=== PATIENT | male | born 1985 | race Caucasian/White ===

== ENCOUNTER 2025-01-26 18:21 | Inpatient (IN) | payer OTHER ==
[~2025-01-26 18:21] MED LIST: Iopamidol-370 76% 500 ML MDV (1 ML CHARGE) ONE
[2025-01-26] MEDS ORDERED: Metoclopramide HCl 10 MG (2 mL) VIAL ONE (19:03)
[2025-01-26] MEDS ORDERED: Acetaminophen 500 MG TAB ONE (19:03)
[2025-01-26 19:15] LABS: #Basophils 0.04 10x3/uL (0.0-0.2); #Eosinophils Less than 0.03 10x3/uL (0.0-0.7); #Monocytes 0.40 10x3/uL (0.11-0.59); #Neutrophils 7.28 10x3/uL (1.40-6.50); %Basophils 0.5 % (0.0-1.0); %Eosinophils 0.1 % (0.0-10.0); %Lymphocytes 11.9 % (21.0-51.0); %Monocytes 4.5 % (0.0-10.0); %Neutrophils 82.4 % (42.0-75.0); Hematocrit 46.8 % (42.0-52.0); Hemoglobin 16.2 g/dL (14.0-18.0); Mean Corpuscular Hemoglobin 28.9 pg (27.0-31.0); Mean Corpuscular Volume 83.4 fL (78.0-98.0); Platelet Count 243 10x3/uL (130-400); Red Blood Cell (RBC) Count 5.61 mill/uL (4.70-6.10); White Blood Cell (WBC) Count 8.83 10x3/uL (4.8-10.8)
[2025-01-26 19:41] LABS: INR-International Normal Ratio 1.0; Prothrombin Time 13.3 sec (12.0-14.7)
[2025-01-26 19:42] LABS: PTT 32.4 sec (22.9-36.1)
[2025-01-26 20:18] LABS: ALT (SGPT) 23 U/L (Less than 45); AST (SGOT) 30 U/L (11-34); Albumin 4.2 g/dL (3.1-4.5); Alkaline Phosphatase 79 U/L (40-110); Anion Gap 16 mmol/L (10-20); BUN (Urea Nitrogen) 11 mg/dL (8.9-20.6); Bilirubin, Total 0.4 mg/dL (0.3-1.2); Calc. Creatinine Clearance 0 mL/min (70-130); Calcium 9.6 mg/dL (7.8-10.44); Carbon Dioxide 21 mmol/L (22-29); Chloride 109 mmol/L (98-107); Globulin 2.9 g/dL (2.4-3.5); Glucose 87 mg/dL (70-105); Potassium 4.4 mmol/L (3.5-5.1); Sodium 142 mmol/L (136-145)
[2025-01-26] MEDS ORDERED: Droperidol 5 MG/2 ML VIAL ONE (21:17)
[2025-01-27] MEDS ORDERED: Ondansetron PF 4 MG/2 ML Vial IVP PRN (01:26)
[2025-01-27] MEDS ORDERED: Guaifenesin DM 100-10/5 ML UDCUP PO PRN (01:26)
[2025-01-27] MEDS ORDERED: Calcium Carbonate 500 MG ChewTAB PO PRN (01:26)
[2025-01-27 01:53] VITALS: BMI 30.4
[2025-01-27] MEDS: Metoclopramide HCl 10 MG (2 mL) VIAL IVP SCH (03:00)
[2025-01-27] MEDS: Droperidol 5 MG/2 ML VIAL SLOW IVP SCH (03:01)
[2025-01-27 04:18] LABS: Cardiac Risk 3.2 (Less than 4.5); Cholesterol 136.0 mg/dl (< 200 Desired); HDL Cholesterol 42.0 mg/dL (>60 Neg Risk); LDL Cholesterol, Calculated 78.0 mg/dL; Triglycerides 82.0 mg/dL (Less than 150)
[2025-01-27] MEDS: Enoxaparin 40 MG (0.4 mL) SYRINGE SC SCH (08:00)
[2025-01-27] MEDS: Ketorolac Tromethamine 30 MG (1 mL) VIAL IVP PRN (15:07)
[2025-01-27] MEDS: Aspirin 81 mg Enteric Coated Tablet PO SCH (15:07)
[2025-01-27 18:32] LABS: Magnesium 1.8 mg/dL (1.6-2.6)
[2025-01-27] MEDS ORDERED: PHOS-NAK 1 PKT PACK PO PRN (20:30)
[2025-01-27] MEDS ORDERED: Potassium Chloride 20 MEQ in Premix 1 BAG IVPB PRN (20:30)
[2025-01-27] MEDS: Magnesium 2 GM/50 ML(in water) 2 GM in Premix 1 BAG IVPB PRN (22:16)
[2025-01-27] MEDS: Electrolyte Replacement Protocol 1 EACH FS ONE (23:02)
[2025-01-28] MEDS: Acetaminophen 325 MG TAB PO PRN
[2025-01-28 05:14] LABS: Anion Gap 14 mmol/L (10-20); BUN (Urea Nitrogen) 14 mg/dL (8.9-20.6); Calc. Creatinine Clearance 154 mL/min (70-130); Calcium 9.1 mg/dL (7.8-10.44); Carbon Dioxide 27 mmol/L (22-29); Chloride 107 mmol/L (98-107); Glucose 95 mg/dL (70-105); Magnesium 2.4 mg/dL (1.6-2.6); Potassium 4.5 mmol/L (3.5-5.1); Sodium 143 mmol/L (136-145)
[2025-01-28] MEDS: Aspirin 81 mg Enteric Coated Tablet PO SCH (08:13)
[2025-01-28] MEDS: HYDROcodone/Acetaminophen 7.5/325 mg Tablet PO PRN (11:50)
[2025-01-29 04:04] LABS: Anion Gap 11 mmol/L (10-20); BUN (Urea Nitrogen) 16 mg/dL (8.9-20.6); Calc. Creatinine Clearance 155 mL/min (70-130); Calcium 8.8 mg/dL (7.8-10.44); Carbon Dioxide 27 mmol/L (22-29); Chloride 105 mmol/L (98-107); Glucose 94 mg/dL (70-105); Potassium 4.2 mmol/L (3.5-5.1); Sodium 139 mmol/L (136-145)
[2025-01-29] MEDS ORDERED: Potassium Chloride 20 MEQ in Premix 1 BAG IVPB PRN (16:00)
[2025-01-29] MEDS ORDERED: Magnesium Sulfate In Water 4 GM in Premix 1 BAG IVPB PRN (16:00)
[2025-01-29] MEDS ORDERED: PHOS-NAK 1 PKT PACK PO PRN (16:00)
[2025-01-29 17:47] VITALS: BP 120/74; TEMP 98.8
[2025-01-30] MEDS ORDERED: FLU (Fluarix Triv) 25-26 (6MOS UP)/PF 45 MCG/0.5 ML Syringe IM ONE (03:15)
== END 2025-01-29 17:49 | disposition home or self-care (01) | DRG 103 ==
LOC: ERS 18:21 → EEVIPCON 18:21 → 2SE 01-27 00:12 → OBSVTOIN 01-29 09:28
PROVIDERS: ADMIT Internal Medicine; ATTEND Internal Medicine
DX: G43.909 Migraine, unspecified, not intractable, without status migrainosus (principal); H53.8 Other visual disturbances; I65.22 Occlusion and stenosis of left carotid artery; I65.1 Occlusion and stenosis of basilar artery; Z86.73 Personal history of transient ischemic attack (TIA), and cerebral infarction without residual deficits; Z98.890 Other specified postprocedural states; Z90.49 Acquired absence of other specified parts of digestive tract
CPT/HCPCS: 36415; 70496; 70498; 70544; 70549; 70551; 80048; 80053; 80061; 83735; 84100; 84443; 85025; 85610; 85730; 93005; 93306; 96365; 96375; J1650; J1790; J1885; J2765; J3475; Q9967